=== PATIENT | female | born 1980 | race American Indian/Alaskan Native ===

== ENCOUNTER 2017-07-17 02:42 | Emergency (ER) | payer MEDICAID ==
[2017-07-17 03:01] VITALS: RESP 18; TEMP 98
[2017-07-17] MEDS ORDERED: Morphine 2 mg/ml ISec IVP STA (03:07)
--- NOTE | 2017-07-17 03:09 | ED PDOC ---
Arrival/HPI - General Chief Complaint: Back Pain Time Seen by Provider: 07/17/17 02:49 Historian: Patient - History of Present Illness Narrative History of Present Illness (Text): 07/17/17 03:06 Zoran Baugh is a 37 year old female, whose past medical history includes kidney stones, who presents to the Emergency department complaining of left flank pain with associated hematuria since 23:30 yesterday. Patient states symptoms are similar in quality to previous episodes of kidney stones. Patient denies any fever, chills, chest pain, shortness of breath, nausea, vomiting, diarrhea, dysuria, urinary frequency, neck pain, headache, dizziness, or any other complaints. Time/Duration: 4-6 hours (23:30 yesterday) Symptom Onset: Gradual Symptom Course: Unchanged Activities at Onset: Light Context: Home Past Medical History - Provider Review Nursing Documentation Reviewed: Yes - Infectious Disease Hx of Infectious Diseases: None - Renal Hx Renal Disorder: Yes Hx Kidney Stones: Yes - Psychiatric Hx Substance Use: No Family/Social History - Physician Review Nursing Documentation Reviewed: Yes Family/Social History: Unknown Family HX Smoking Status: Never Smoked Hx Alcohol Use: No Hx Substance Use: No Allergies/Home Meds Allergies/Adverse Reactions: Allergies NSAIDS (Non-Steroidal Anti-Inflamma Allergy (Verified 07/17/17 03:04) NAUSEA Home Medications: Home Meds Medication Instructions Recorded Confirmed Lisinopril/Hydrochlorothiazide 1 tab PO DAILY 07/17/17 07/17/17 [Lisinopril-Hctz 10-12.5 mg Tab] Omeprazole Magnesium [Prilosec Otc] 20 mg PO DAILY 07/17/17 07/17/17 Review of Systems - Physician Review All systems were reviewed & negative as marked: Yes - Review of Systems Constitutional: Normal. absent: Fevers Eyes: Normal ENT: Normal Respiratory: Normal. absent: SOB, Cough Cardiovascular: Normal. absent: Chest Pain Gastrointestinal: Normal. absent: Abdominal Pain, Diarrhea, Nausea, Vomiting Genitourinary Female: Hematuria. absent: Dysuria, Frequency Musculoskeletal: Back Pain (+left flank pain). absent: Neck Pain Skin: Normal. absent: Rash Neurological: Normal. absent: Headache, Dizziness Endocrine: Normal Hemo/Lymphatic: Normal Psychiatric: Normal Physical Exam Vital Signs Reviewed: Yes Vital Signs Temp Pulse Resp BP Pulse Ox 07/17/17 05:17 58 L 18 109/63 99 07/17/17 03:00 98.0 F 70 18 120/83 100 Temperature: Afebrile Blood Pressure: Normal Pulse: Regular Respiratory Rate: Normal Appearance: Positive for: Well-Appearing, Non-Toxic, Comfortable Pain Distress: None Mental Status: Positive for: Alert and Oriented X 3 - Systems Exam Head: Present: Atraumatic, Normocephalic Pupils: Present: PERRL Extroacular Muscles: Present: EOMI Conjunctiva: Present: Normal Mouth: Present: Moist Mucous Membranes Neck: Present: Normal Range of Motion Respiratory/Chest: Present: Clear to Auscultation, Good Air Exchange. No: Respiratory Distress, Accessory Muscle Use Cardiovascular: Present: Regular Rate and Rhythm, Normal S1, S2. No: Murmurs Abdomen: Present: Normal Bowel Sounds. No: Tenderness, Distention, Peritoneal Signs Back: Present: CVA Tenderness (Left CVA tenderness). No: Midline Tenderness, Paraspinal Tenderness Upper Extremity: Present: Normal Inspection. No: Cyanosis, Edema Lower Extremity: Present: Normal Inspection. No: Edema Neurological: Present: GCS=15, CN II-XII Intact, Speech Normal Skin: Present: Warm, Dry, Normal Color. No: Rashes Psychiatric: Present: Alert, Oriented x 3, Normal Insight, Normal Concentration Medical Decision Making ED Course and Treatment: 07/17/17 03:06 Impression: 37 year old female complaining of left flank pain and hematuria since 23:30. Differential Diagnosis included but are not limited to: nephrolithiasis vs. renal colic vs. musculoskeletal pain Plan: -- CT Abdomen and Pelvis -- Labs -- Urinalysis -- IV fluids -- Zofran -- Morphine -- Reassess and disposition Progress Notes: 07/17/17 04:20 CT Abdomen and Pelvis: Lower thorax: No acute findings. ABDOMEN: Liver: Unremarkable. Gallbladder and bile ducts: No calcified stones. No ductal dilation. Pancreas: Unremarkable. No ductal dilation. Spleen: No splenomegaly. Adrenals: No mass. Kidneys and ureters: No renal calculi. Mild pelvocaliectasis of LEFT kidney. 0.3 x 0.2 x 0.2 cm calculus within LEFT proximal ureter. Stomach and bowel: Postsurgical changes of stomach. No definite mural thickening. No obstruction. Appendix: Normal caliber. No inflammation. PELVIS: Bladder: Borderline bladder wall thickening, up to 5 mm. Incomplete distention, limiting evaluation. No stones. Reproductive: Unremarkable as visualized. ABDOMEN and PELVIS: Intraperitoneal space: No significant fluid collection. No free air. Bones/joints: No acute fracture. Soft tissues: Unremarkable. Vasculature: Minimal atherosclerotic disease. No aneurysm. Lymph nodes: No pathologically enlarged lymph nodes. IMPRESSION: 1. LEFT proximal ureteral calculus with mild hydronephrosis. 2. Mild cystitis vs underdistention. Correlate with urinalysis. 3. Incidental/non-acute findings are described above. 07/17/17 06:01 On re-evaluation, patient feels better and is in no acute distress. I have discussed the results and plan with the patient, who expresses understanding. Patient in agreement with plan to be discharged home. Patient is stable for discharge. Patient was instructed to follow up with physician or return if symptoms worsen or new concerning symptoms arise. - Lab Interpretations Microbiology Results: Microbiology Results 07/17/17 03:20 Urine,Clean Catch Urine Culture - Final Enterococcus Faecalis Gram Negative Johnathan Lab Results: 07/17/17 03:30 07/17/17 03:30 Lab Results 07/17/17 03:30: Sodium 140, Potassium 4.0, Chloride 102, Carbon Dioxide 28, Anion Gap 13, BUN 14, Creatinine 0.8, Est GFR ( Amer) > 60, Est GFR (Non- Af Amer) > 60, Random Glucose 105, Calcium 9.3, Total Bilirubin 0.4, AST 23, ALT 20, Alkaline Phosphatase 67, Total Protein 8.7 H, Albumin 4.3, Globulin 4.4 , Albumin/Globulin Ratio 1.0 L 07/17/17 03:30: WBC 7.5, RBC 4.17, Hgb 10.2 L, Hct 32.1 L, MCV 77.0 L, MCH 24.5 L, MCHC 31.8, RDW 16.2 H, Plt Count 508 H, MPV 9.2, Gran % 61.2, Lymph % (Auto) 28.6, [place] % (Auto) 5.8, Eos % (Auto) 4.1, Baso % (Auto) 0.3, Gran # 4.57, Lymph # 2.1, [place] # 0.4, Eos # 0.3, Baso # 0.02 07/17/17 03:20: Urine Color Red, Urine Appearance Cloudy, Urine pH 6.5, Ur Specific [place] 1.015, Urine Protein 100 H, Urine Glucose (UA) Negative, Urine Ketones Trace H, Urine Blood Large H, Urine Nitrate Negative, Urine Bilirubin Small H, Urine Urobilinogen 0.2, Ur Leukocyte Esterase Small H, Urine RBC Tntc, Urine WBC 1 - 3, Ur Epithelial Cells 1 - 3, Urine Bacteria Small, Urine HCG, Qual Negative I have reviewed the lab results: Yes - RAD Interpretation Radiology Orders: 07/17/17 03:06 ABD & PELVIS W/O PO OR IV CONT [CT] Stat Needleworker: Radiologist - Medication Orders Current Medication Orders: Discontinued Medications Sodium Chloride (Sodium Chloride 0.9%) 1,000 mls @ 80 mls/hr IV .[id number] BRIDGETTE Last Admin: 07/17/17 03:36 Dose: 80 mls/hr eMAR Start Stop Document 07/17/17 03:36 CNR (Rec: 07/17/17 03:36 CNR [id number]) Intravenous Solution Start Date 07/17/17 Start Time 03:36 Morphine Sulfate (Morphine) 2 mg IVP STAT STA Stop: 07/17/17 03:08 Last Admin: 07/17/17 03:36 Dose: 2 mg MAR Pain Assessment Document 07/17/17 03:36 CNR (Rec: 07/17/17 03:36 CNR [id number]) Pain Reassessment Is this a pain reassessment? Yes Description Description Constant IVP Administration Document 07/17/17 03:36 CNR (Rec: 07/17/17 03:36 CNR [id number]) Charges for Administration # of IVP Administrations 1 Ondansetron HCl (Zofran Inj) 4 mg IVP STAT STA Stop: 07/17/17 03:07 Last Admin: 07/17/17 03:36 Dose: 4 mg IVP Administration Document 07/17/17 03:36 CNR (Rec: 07/17/17 03:36 CNR [id number]) Charges for Administration # of IVP Administrations 1 - Scribe Statement The provider has reviewed the documentation as recorded by the Aixaiblarry Pozo Provider Scribe Attestation: All medical record entries made by the Scribe were at my direction and personally dictated by me. I have reviewed the chart and agree that the record accurately reflects my personal performance of the history, physical exam, medical decision making, and the department course for this patient. I have also personally directed, reviewed, and agree with the discharge instructions and disposition. Disposition/Present on Arrival - Present on Arrival Any Indicators Present on Arrival: No History of DVT/PE: No History of Uncontrolled Diabetes: No Urinary Catheter: No History of Decub. Ulcer: No History Surgical Site Infection Following: None - Disposition Have Diagnosis and Disposition been Completed?: Yes Diagnosis: Renal colic on left side Disposition: HOME/ ROUTINE Disposition Time: 06:01 Condition: GOOD Discharge Instructions (ExitCare): Renal Colic (ED) Prescriptions: Ciprofloxacin HCl [Cipro] 250 mg PO BID #14 tab Tamsulosin [Flomax] 0.4 mg PO DAILY #10 cap oxyCODONE/Acetaminophen [Percocet 5/325 mg Tab] 1 ea PO QID PRN #6 tab PRN Reason: Pain, Moderate (4-7) Forms: [facility] (Japanese)
[2017-07-17] MEDS ORDERED: Sodium Chloride 0.9% 1,000 ML IV SCH (03:15)
[2017-07-17 03:40] LABS: PH,URINE 6.5 (4.7-8.0); URINE BILIRUBIN SMALL (NEGATIVE); URINE BLOOD LARGE (NEGATIVE); URINE GLUCOSE (UA) NEGATIVE (NEGATIVE); URINE LEUKOCYTE ESTERASE SMALL Leu/uL (NEGATIVE); URINE NITRATE NEGATIVE (NEGATIVE); URINE PROTEIN 100 mg/dL (<30 mg/dL); URINE UROBILINOGEN 0.2 E.U./dL (<1 E.U./dL)
[2017-07-17 03:52] LABS: URINE APPEARANCE CLOUDY (CLEAR); URINE COLOR RED (YELLOW)
[2017-07-17 03:52] LABS: ALBUMIN 4.3 g/dL (3.0-4.8); ALT/SGPT 20 U/L (7-56); AST/SGOT 23 U/L (14-36); BLOOD UREA NITROGEN 14 mg/dL (7-21); CALCIUM 9.3 mg/dL (8.4-10.5); GFR AFRICAN-AMERICAN > 60; GFR NON-AFRICAN AMERICAN > 60
[2017-07-17 03:53] LABS: URINE RBC TNTC /hpf (0-2)
[2017-07-17 03:54] LABS: HCG,QUALITATIVE URINE NEGATIVE (NEGATIVE); URINE BACTERIA SMALL (NEG)
[2017-07-17 03:58] LABS: BASO # 0.02 K/mm3 (0.0-2.0); BASO % 0.3 % (0.0-3.0); EOS # 0.3 (0.0-0.7); EOS % 4.1 % (1.5-5.0); GRAN # 4.57 (1.4-6.5); GRAN % 61.2 % (50.0-68.0); HEMOGLOBIN 10.2 g/dL (12.0-16.0); LYMPH # 2.1 (1.2-3.4); LYMPH % 28.6 % (22.0-35.0); MEAN CORPUSCULAR HEMOGLOBIN 24.5 pg (25.0-35.0); MEAN CORPUSCULAR HGB CONC 31.8 g/dl (31.0-37.0); MEAN PLATELET VOLUME 9.2 fl (7.0-11.0); MONO # 0.4 (0.1-0.6); MONO % 5.8 % (1.0-6.0); RBC 4.17 10^6/uL (3.5-6.1); RED CELL DISTRIBUTION WIDTH 16.2 % (11.5-14.5); WHITE BLOOD COUNT 7.5 10^3/ul (4.5-11.0)
--- NOTE | 2017-07-17 04:15 | CT ---
EXAM: CT Abdomen and Pelvis Without Intravenous Contrast CLINICAL HISTORY: 37 years old, female; Pain; Abdominal pain; Flank; Left; Prior surgery; Additional info: Left flank pain TECHNIQUE: Axial computed tomography images of the abdomen and pelvis without intravenous contrast. All CT scans at this facility use one or more dose reduction techniques, viz.: automated exposure control; ma/kV adjustment per patient size (including targeted exams where dose is matched to indication; i.e. head); or iterative reconstruction technique. Coronal and sagittal reformatted images were created and reviewed. COMPARISON: No relevant prior studies available. FINDINGS: Lower thorax: No acute findings. ABDOMEN: Liver: Unremarkable. Gallbladder and bile ducts: No calcified stones. No ductal dilation. Pancreas: Unremarkable. No ductal dilation. Spleen: No splenomegaly. Adrenals: No mass. Kidneys and ureters: No renal calculi. Mild pelvocaliectasis of LEFT kidney. 0.3 x 0.2 x 0.2 cm calculus within LEFT proximal ureter. Stomach and bowel: Postsurgical changes of stomach. No definite mural thickening. No obstruction. Appendix: Normal caliber. No inflammation. PELVIS: Bladder: Borderline bladder wall thickening, up to 5 mm. Incomplete distention, limiting evaluation. No stones. Reproductive: Unremarkable as visualized. ABDOMEN and PELVIS: Intraperitoneal space: No significant fluid collection. No free air. Bones/joints: No acute fracture. Soft tissues: Unremarkable. Vasculature: Minimal atherosclerotic disease. No aneurysm. Lymph nodes: No pathologically enlarged lymph nodes. IMPRESSION: 1. LEFT proximal ureteral calculus with mild hydronephrosis. 2. Mild cystitis vs underdistention. Correlate with urinalysis. 3. Incidental/non-acute findings are described above.
[2017-07-17 05:17] VITALS: BP 109/63; PULSE 58; O2SAT 99
== END 2017-07-17 06:08 | disposition home or self-care (01) ==
LOC: ED 02:42
DX: N23 Unspecified renal colic (principal)
CPT/HCPCS: 74176; 80053; 81001; 84703; 85025; 87086; 87181; 96374; 96375; 99284; J2270; J2405; J7040